=== PATIENT | male | born 1950 | race Caucasian/White ===

== ENCOUNTER 2017-02-02 00:24 | Day surgery (SDC) | payer MEDICARE ==
[2017-02-02] VITALS (15 sets, daily range): BP systolic 100–133; BP diastolic 56–79; PULSE 42–60; RESP 12–19; O2SAT 95–96
[~2017-02-02] VITALS: Ht 179.1 cm; Wt 112.0 kg
[~2017-02-02 00:24] MED LIST: ASPI-973 PO; ATEN25TA PO; CHOL200025 PO; CYAN10008 PO; FLUO20CA25 PO; GLUC-123 PO; LISI10TA PO; MULT-1018 PO; SIMV80TA4 PO; TAMS0.4C29 PO; TRAZ-115 PO
[2017-02-02] MEDS ORDERED: fentaNYL-PF 50 mCg/mL 2 mL Inj ONE ×2 (00:25→10:50)
[2017-02-02 08:08] LABS: BASOPHILS % (AUTO) 0.3 % (0-3); EOSINOPHILS % (AUTO) 5.2 % (0-5); MONOCYTES % (AUTO) 9.7 % (4-12); Mean Corpuscular Volume 80.9 fL (81-100); Platelet Count 127 bil/L (150-400)
[2017-02-02] MEDS ORDERED: Heparin 1,000 Units/500 mL NS Premix IV ONE (10:36)
[2017-02-02] MEDS ORDERED: Heparin 10,000 Unit/1,000 mL NS Premix IV ONE (10:36)
[2017-02-02] MEDS ORDERED: Nitroglycerin 50,000 mcg/250 mL D5W Premix IV ONE (10:55)
[2017-02-02] MEDS ORDERED: 0.9% Sodium Chloride 100 ML ONE (12:19)
[2017-02-02] MEDS ORDERED: Heparin 1,000 Unit/mL 10 mL Inj ONE (12:19)
[2017-02-02] MEDS ORDERED: Adenosine Inj 20 ML IV ONE (12:19)
--- NOTE | 2017-02-02 13:37 | DI95 ---
[place] [id number] INTERVENTIONAL CARDIAC CATHETERIZATION PATIENT: ELIJAH KEENE : 1950 MR#: [id number] ADMIT: 02/02/2017 JOB ID: [id number] DATE: 02/02/2017 PATIENT PROFILE: The patient is a 66-year-old male with history of obesity, hypertension, hyperlipidemia, obstructive sleep apnea and smoking. The patient presented with exertional angina. PROCEDURE: 1. Retrograde left heart catheterization. 2. Selective coronary angiography. 3. Fractional flow reserve to the left anterior descending. 4. Fractional flow reserve to the circumflex artery. 5. Balloon angioplasty and stenting to the mid right coronary artery. 6. Left ventricular angiogram. VASCULAR CLOSURE DEVICE: Perclose. COMPLICATIONS: None. METHOD: Retrograde left heart catheterization was performed from the right groin under 1% lidocaine local anesthesia using a 6-Yi sheath. Selective coronary angiogram was performed in multiple projections, including cranial and caudal angulations with hand injected contrast via JL-4 and 3DRC catheters. Heparin 4,000 units were given. A 6-Yi JL-4 guide was advanced to the left coronary ostium. A flow wire was directed into the left anterior descending artery. Adenosine was given infusion IV. FFR of the proximal left anterior descending is 0.90. The attention was then turned to the circumflex artery. The flow wire was redirected into the circumflex artery. Adenosine was given infusion IV. FFR of the circumflex artery is 0.84. Additional 8,000 units of heparin were given. A 6-Yi 3DRC guide was advanced to the right coronary ostium. A Run-through wire was placed inside the right coronary artery. An initial attempt to cross the lesion with a 3.0 x 15 mm balloon was unsuccessful. A guide liner was then used for better support. The mid right coronary artery lesion was pre-dilated with a 1.5, 2.5 and a 3.0 mm balloons. The balloon keeps slipping back and forth at this point, which indicates calcified lesion. An NC 3.0 x 20 mm balloon was then used to pre-dilate the lesion. It was inflated up to 22 atmospheres for 30 seconds. A Xience 3.5 x 23 mm stent was placed inside the lesion and deployed at 15 atmospheres for 30 seconds. Final angiogram was obtained. A 6-Yi angulated pigtail catheter was advanced to the left ventricle. Left ventricular angiogram was performed in the 30 degree LOYOLA view by injecting contrast at the rate of 10 cc/second for 3 seconds. This catheter was withdrawn. Right femoral angiogram was performed. Following sheath removal, hemostasis was achieved by using a Perclose device. The patient tolerated the procedure well. He was transferred to [facility] in good condition. TOTAL CONTRAST USED: 130 cc. FLUOROSCOPY TIME: 7.6 minutes. RESULTS: 1. Selective coronary angiogram: a. Left main coronary artery is normal. b. The left anterior descending artery has eccentric 60% stenosis in the proximal portion with moderate calcification. The first diagonal branch is moderate size and has eccentric 90% stenosis in the proximal portion. c. The circumflex artery has eccentric 60% stenosis in the proximal and mid portions with moderate calcification. d. The dominant and large right coronary artery has severe 98% stenosis in the midportion with moderate calcification. 2. FFR of the proximal left anterior descending is 0.90, which indicates nonhemodynamic significant stenosis. 3. FFR of the proximal and mid circumflex artery is 0.84, which indicates nonhemodynamic significant stenosis. 4. Balloon angioplasty and stenting was performed to the tight culprit mid right coronary artery lesion by deploying one drug eluting stent (3.5 x 23 mm) to achieve an excellent angiographic result with LISSY-3 flow distally. 5. Left ventricular angiogram demonstrates normal left ventricular systolic function (visually estimated ejection fraction 60%). There is no wall motion abnormality. There is no mitral regurgitation. 6. There is no gradient across the aortic valve on catheter withdrawal. 7. Aortic pressure is 126/75 mmHg. Left ventricular pressure is 128/80 mmHg. 8. Left ventricular end-diastolic is 24 mmHg. CONCLUSION: 1. Moderate disease of the left anterior descending and circumflex artery. 2. Severe 90% stenosis of the first diagonal branch. 3. Critical 98% stenosis of the dominant right coronary artery and this was successfully treated with one drug eluting stent (3.5 x 23 mm). 4. Left ventricular ejection fraction 60%. 5. Left ventricular end-diastolic pressure 24 mmHg. MTDD
--- NOTE | 2017-02-02 15:09 | NUR ---
recovery kalina pt had stable recovery post heart cath. VSS on 2L O2, groin site soft non tender, pedal pulses palpable. Pt states verbal understanding of discharge instructions regarding activity restrictions and medication changes, care transferred to Nestor Dunham RN.
--- NOTE | 2017-02-02 18:25 | NUR ---
Transfer note- Patient up and stood at bedside. Tolerated activity well. Right groin stable. Monitor shows sinus alberto. BP stable. Medicated for complaint of headache with good relief. Transferred patient to [facility]. Report given to Angela PRATT.
--- NOTE | 2017-02-02 18:32 | NUR ---
Arrived 1800 - Received report from Qasim PRATT in [facility]. She stated he had a right perclose in his groin that was clean, dry, and intact. He had a stent placed in the RCA. 1830 - He arrived from [facility] to [facility] 2019 at this time. Right groin dressing clean, dry, and intact. No signs of hematoma. A&Ox3, no complaints of pain. Unable to complete full assessment due to change of shift. Will pass on this information to the materials research engineer team. Family in the room with the patient. Care continues.
[2017-02-02] MEDS ORDERED: 0.9% Sodium Chloride 250 ML BOLUS IV PRN (20:10)
[2017-02-02] MEDS ORDERED: Sodium Chloride LOK Flush 10 mL Syringe IVFLUSH PRN (20:10)
[2017-02-02] MEDS ORDERED: 0.9% Sodium Chloride 400 ML (4 HRS) IV ONE (20:10)
[2017-02-02] MEDS ORDERED: Ondansetron 2 mg/mL 2 mL Inj IVPUSH PRN (20:10)
[2017-02-02] MEDS ORDERED: Atropine 1 mg/10 mL (Code) Syringe IVPUSH PRN (20:10)
[2017-02-02] MEDS ORDERED: Glucose 40% Oral Gel 15 Gm Tube PO PRN (22:55)
[2017-02-02] MEDS ORDERED: Dextrose 10% 250 ML IV PRN (23:00)
[2017-02-03 03:15] VITALS: BP 108/56; PULSE 49; RESP 15; O2SAT 97
[2017-02-03 03:26] LABS: Mean Corpuscular Hemoglobin 26.6 pg (27.0-35.0); Mean Corpuscular Volume 80.9 fL (81-100)
--- NOTE | 2017-02-03 05:56 | NUR ---
Groin Site/Tele Patient's right going site is soft, non-tender, no sign of hematoma. Patient denies pain of any sort. Tele: sinus bradycardia in the 40s and 50s with brief episode of rates in 30s. Patient returned to a heart rate in the 40s without intervention; patient sleeping soundly at the time. Woke patient for nursing care and heart rate climbed into the 50s. Continue to monitor.
[2017-02-03 08:00] VITALS: BP 130/79; PULSE 60; RESP 24; O2SAT 98
[2017-02-03] MEDS ORDERED: Insulin LISPRO 300 Unit/3 mL Inj SUBQ SCH (08:00)
--- NOTE | 2017-02-03 10:18 | DIS ---
[address] [address] DISCHARGE SUMMARY PATIENT: ELIJAH KEENE : 1950 MR#: [id number] ADMIT: 02/02/2017 JOB ID: [id number] DIS: 02/03/2017 ADMITTING DIAGNOSES: Coronary artery disease with angina pectoris. DISCHARGE DIAGNOSIS: Coronary artery disease with angina pectoris. SECONDARY DIAGNOSES: 1. Hypertension. 2. Hyperlipidemia. 3. History of smoking. 4. Sinus bradycardia. 5. Obstructive sleep apnea on CPAP. 6. Obesity with BMI of 34.9 kg/m2. PROCEDURES: 1. Retrograde left heart catheterization. 2. Selective coronary angiography. 3. Fractional flow reserve to the left anterior descending. 4. Fractional flow reserve to the circumflex artery. 5. Balloon angioplasty and stenting to the mid right coronary artery. 6. Left ventricular angiogram. VASCULAR CLOSURE DEVICE: Perclose. COMPLICATION: None. HISTORY: Please see the detailed history in the accompanying office note dated January 28, 2017. The patient has experienced exertional chest discomfort for the past several months. He underwent elective coronary angiogram on February 02, 2017. It showed 1. Moderate eccentric 60% stenosis of the proximal left anterior descending with a fractional flow reserve of this lesion of 0.90. 2. Eccentric 90% stenosis in the proximal portion of the first diagonal branch. 3. A 60% eccentric stenosis in the proximal and mid portions of the circumflex artery with an fractional flow reserve of 0.84. 4. Critical 98% stenosis in the mid portion of dominant right coronary artery. 5. Left ventricular ejection fraction 60%. 6. Left ventricular end-diastolic pressure is 24 mmHg. Balloon angioplasty and stenting was performed to the critical culprit mid right coronary artery lesion by deploying one drug eluting stent (3.5 x 23 mm) to achieve an excellent angiographic result with LISSY-3 flow distally. PLAN: The patient was discharged from the hospital on the following day in good condition. Atenolol was discontinued due to sinus bradycardia. The other medications remained the same. He will be on Plavix 75 mg once daily for at least one year. The patient was referred to outpatient cardiac rehab. He will return to see me in 4-6 weeks. JACQUELIN
[2017-02-03 10:30] VITALS: BP 121/77; PULSE 62; O2SAT 98
[2017-02-03 11:12] VITALS: PULSE 56
--- NOTE | 2017-02-03 13:36 | NUR ---
D/C Note.. Pt has been up amb in halls and is johanny activity well. Denies any SOB or chest pain. R groin site remains stable. Seen by Dr Madden and d/c orders received. D/C home accompanied by with belongings.
== END 2017-02-03 12:35 | disposition home or self-care (01) ==
LOC: SOUO 00:24 → PCC 18:14 → SOUO 02-03 12:35
PROVIDERS: ATTEND Internal Medicine Interventional Cardiology
DX: I25.118 Atherosclerotic heart disease of native coronary artery with other forms of angina pectoris (principal); I10 Essential (primary) hypertension; E78.5 Hyperlipidemia, unspecified; Z87.891 Personal history of nicotine dependence; G47.33 Obstructive sleep apnea (adult) (pediatric); E66.9 Obesity, unspecified; R00.1 Bradycardia, unspecified; Z68.34 Body mass index [BMI] 34.0-34.9, adult
CPT/HCPCS: 36415; 80048; 85025; 85027; 93005; 93458; 93571; 93572; 99152; 99153; C1725; C1760; C1769; C1874; C1887; C9600; J0153; J1644; J1815; J2250; J3010; J7030; Q9967